=== PATIENT | male | born 1975 | race African-American/Black ===

== ENCOUNTER 2019-05-18 02:14 | Emergency (ER) | payer OTHER ==
[~2019-05-18] VITALS: Ht 193 cm; Wt 104.0 kg
[2019-05-18] MEDS ORDERED: LIDOCAINE HCL 1% 20ML VIAL (Pyxis) INJ INFIL ONE (08:00)
[2019-05-18 10:37] VITALS: BP 135/80
== END 2019-05-18 10:37 | disposition home or self-care (01) ==
LOC: ER 02:30
DX: S62.614A Displaced fracture of proximal phalanx of right ring finger, initial encounter for closed fracture (principal); F12.10 Cannabis abuse, uncomplicated; Z88.0 Allergy status to penicillin; X58.XXXA Exposure to other specified factors, initial encounter; Y93.89 Activity, other specified; Y92.89 Other specified places as the place of occurrence of the external cause; Y99.8 Other external cause status
CPT/HCPCS: 73130; 99283; J3490